=== PATIENT | female | born 1985 | race Caucasian/White ===

== ENCOUNTER → 2019-03-06 14:44 | Outpatient (CLI) | payer OTHER, SELFPAY ==
[2019-03-06 15:31] LABS: Add Manual Diff / Slide Review NO; Basophils Absolute Auto 0 /uL (0-100); Basophils Percent Auto 0.4 % (0-2); Eosinophils Absolute Auto 100 /uL (0-450); Eosinophils Percent Auto 1.8 % (2-4); Hematocrit 37.7 % (36-46); Hemoglobin 12.8 g/dL (12.0-16.0); Lymphocytes Absolute Auto 1600 /uL (1100-4500); Lymphocytes Percent Auto 22.8 % (25-40); Mean Corpuscular HGB Conc 33.8 % (30-36); Mean Corpuscular Volume 88.7 fL (80-100); Monocytes Absolute Auto 400 /uL (0-900); Monocytes Percent Auto 5.6 % (3-14); Neutrophils Absolute Auto 4800 /uL (1500-7000); Neutrophils Percent Auto 69.4 % (50-75); Platelet Count 251 X10^3/uL (150-400); Red Blood Cell Count 4.26 X10^6/uL (4.0-5.2); Red Cell Distribution Width 13.9 % (11.6-14.8)
[2019-03-06 17:03] LABS: Hepatitis B Surface Antigen NEGATIVE s/c (NEGATIVE)
[2019-03-06 17:12] LABS: Appearance Urine UA CLEAR; Bilirubin Urine UA NEGATIVE (NEGATIVE); Color Urine UA YELLOW; Glucose Urine UA NEGATIVE (Negative); Ketones Urine UA NEGATIVE (NEGATIVE); Leukocyte Esterase Urine UA NEGATIVE (NEGATIVE); Nitrite Urine UA NEGATIVE (Negative); Occult Blood Urine UA NEGATIVE (Negative); Protein Urine UA NEGATIVE (Negative); Urobilinogen Urine UA 0.2 E.U./dL (0.2); pH Urine UA 5.5 (4.5-8.0)
[2019-03-06 17:19] LABS: HIV 1 & 2 Ab/Ag 4th Gen Combo NEGATIVE (NEGATIVE); Hep C Virus Ab w/Reflex Quant NEGATIVE s/c (NEGATIVE)
[2019-03-09 23:56] LABS: RPR Screen Nonreactive (Nonreactive)
== END ==
PROVIDERS: Visit Provider Specialist
DX: Z34.81 Encounter for supervision of other normal pregnancy, first trimester (principal)
CPT/HCPCS: 36415; 80055; 81003; 86787; 86803; 86850; 86900; 86901; 87077; 87086; 87389

== ENCOUNTER → 2019-04-18 11:02 | Outpatient (CLI) | payer OTHER, SELFPAY ==
[2019-04-22 14:29] LABS: AFP, Serum 23.4 ng/mL; Calc Gestational Age 17.4; Cigarette Smoker N; Estriol, Free 1.27 ng/mL; Inhibin A, Dimeric 114 pg/mL; Maternal Weight 152 lbs; hCG, MoM 0.74; hCG, Serum 19.2 IU/mL
== END ==
PROVIDERS: Visit Provider Specialist
DX: Z34.82 Encounter for supervision of other normal pregnancy, second trimester (principal); Z3A.17 17 weeks gestation of pregnancy
CPT/HCPCS: 36415; 82105; 82677; 84702; 86336

== ENCOUNTER → 2019-05-08 15:41 | Outpatient (CLI) | payer OTHER, SELFPAY ==
--- NOTE | 2019-05-08 15:42 | DI.US.S_ITS ---
PROCEDURE: US OB >= 14 WEEKS FETUS INDICATIONS: ANATOMY SCAN OUTSIDE/PRIOR DATING DATA: Last menstrual period (LMP): 12/17/2018. LMP-based estimated date of delivery (DUSTIN): 09/23/2019. First dating scan (date and location): 02/21/2019. Estimated date of delivery (DUSTIN) from first dating scan: 09/23/2019. TECHNIQUE: Real-time scanning was performed of the fetus, with image documentation and biometric measurements. COMPARISON: [facility], , OB >= 14 WEEKS FETUS, 04/18/2019, 9:01. FINDINGS: General: A single living intrauterine gestation is present. Presentation: Transverse. Placenta: Placental position is posterior, without previa. Low lying approximately 1.1 cm from the internal cervical os. Amniotic fluid index: 12.4 cm, normal range is 5-24 cm. heart rate: 153 beats per minute. Maternal cervical canal: 5.2 cm long. Normal lower limit is 2.5 cm. biometrics: Biparietal diameter: 4.6 cm. 19 weeks 5/7 days. Head circumference: 17.6 cm. 20 weeks 1/7 days. Abdominal circumference: 15.8 cm. 21 weeks 0/7 days. Femur length: 3.2 cm. 20 weeks 1/7 days. Estimated gestational age from initial scan: 20 weeks 2/7 days. Composite gestational age from present scan: 20 weeks 3/7 days Estimated weight and percentile: 357 g. 57th percentile. Measurement variability for biometric dating: +/- 7 days from 14 weeks to 15 weeks 6 days gestation, +/- 10 days from 16 weeks to 21 weeks 6 days gestation, +/- 2 weeks from 22 weeks to 27 weeks 6 days gestation, +/- 3 weeks for 28 weeks gestation or later. weight reference: 4500 g or EFW >90/95% is considered macrosomia or large for gestational age. EFW <10% is small for gestational age. EFW 5% or less is considered intra-uterine growth restriction. Anatomic survey: Neuro: Ventricles are non-dilated at less than 10 mm. Cisterna magna is normal at 3-11 mm. Cerebellum is normal in size and morphology. Nuchal skin fold: Normal at less than 6 mm between 14-21 weeks gestational age. Face: Nose and lips, facial profile are normal. Spine: No evidence for spina bifida. Heart: 4-chambered heart is present, with normal ventricular outflow tracts. Diaphragm: Diaphragm is intact. Stomach: Left-sided stomach is present. Kidneys: No hydronephrosis. Normal is less than 5 mm in 2nd trimester, less than 7 mm in 3rd trimester. Cord: 3-vessel cord has orthotopic insertion. Bladder: Normal in size. Extremities: All 4 extremities identified. IMPRESSION: 1. Buckley living intrauterine at 20 weeks 3/7 days based on today's ultrasound. This is concordant with the external assessment. There is expected a normal growth. 2. Low-lying placenta. Normal amniotic fluid. Followup ultrasound is recommended. 3. Normal and complete anatomic survey. Dictated by: Rasheed Acosta M.D. on 05/08/2019 at 17:38 Approved by: Rasheed Acosta M.D. on 05/08/2019 at 17:49
== END ==
PROVIDERS: Visit Provider Specialist
DX: Z34.82 Encounter for supervision of other normal pregnancy, second trimester (principal); Z3A.20 20 weeks gestation of pregnancy
CPT/HCPCS: 76811

== ENCOUNTER → 2019-06-23 09:13 | Outpatient (CLI) | payer OTHER, SELFPAY ==
[2019-06-23 11:29] LABS: Hematocrit 29.8 % (36-46); Hemoglobin 10.1 g/dL (12.0-16.0)
[2019-06-23 12:08] LABS: GTT (PREG) 1 Hour PP 50gm Dose 83 mg/dL (76-139)
== END ==
PROVIDERS: PCP Specialist; Visit Provider Specialist
DX: O26.899 Other specified pregnancy related conditions, unspecified trimester (principal); Z34.82 Encounter for supervision of other normal pregnancy, second trimester; Z67.91 Unspecified blood type, Rh negative
CPT/HCPCS: 36415; 82950; 85014; 85018; 86850

== ENCOUNTER → 2019-08-29 11:52 | Outpatient (CLI) | payer OTHER, SELFPAY ==
[2019-08-30 08:26] LABS: Strep Grp B PCR NEG for Grp B Strep
== END ==
PROVIDERS: PCP Specialist; Visit Provider Specialist
DX: Z34.83 Encounter for supervision of other normal pregnancy, third trimester (principal)
CPT/HCPCS: 87653

== ENCOUNTER 2019-09-16 05:56 | Inpatient (IN) | payer OTHER, SELFPAY ==
[2019-09-16 07:39] LABS: Add Manual Diff / Slide Review NO; Basophils Absolute Auto 100 /uL (0-100); Basophils Percent Auto 0.7 % (0-2); Eosinophils Absolute Auto 200 /uL (0-450); Eosinophils Percent Auto 2.5 % (2-4); Hematocrit 30.8 % (36-46); Hemoglobin 10.2 g/dL (12.0-16.0); Lymphocytes Absolute Auto 1900 /uL (1100-4500); Lymphocytes Percent Auto 23.6 % (25-40); Mean Corpuscular Hemoglobin 25.8 PG (26-34); Monocytes Absolute Auto 600 /uL (0-900); Monocytes Percent Auto 7.8 % (3-14); Neutrophils Absolute Auto 5400 /uL (1500-7000); Neutrophils Percent Auto 65.4 % (50-75); Platelet Count 187 X10^3/uL (150-400); Red Blood Cell Count 3.95 X10^6/uL (4.0-5.2); Red Cell Distribution Width 16.4 % (11.6-14.8); White Blood Cell Count 8.2 X10^3/uL (4.5-11.0)
[2019-09-16] MEDS: IBUPROFEN 600 MG TABLET PO ×3 (07:59→20:32)
--- NOTE | 2019-09-16 08:10 | P.HPOB_ITS ---
OB HPI Date/Time Date of admission: 09/16/19 Date Patient Seen: 09/16/19 Time Patient Seen: 06:30 History of Present Condition Chief complaint: EVALUATION OF LABOR : 4 Para: 2 Estimated Date of Delivery: 09/23/19 Estimated Gestational Age (weeks): 39 Narrative: Yamilka Vital is a 34 year old female admitted in active labor History of Present care: good care, initiated at week # (9), number of visits (11) and pounds weight gain (30) Dating criteria: LMP confirmed by 1st trimester US Ultrasounds: normal mid trimester US Obstetrical complications: none Medical complications: none Preadmission Labs Blood type: 0 (-) negative -: Antibody screen: negative, GBS status: negative, HBsAG: negative and HIV: negative -: Rubella: immune and Varicella: immune PAP: Normal Quad screen: Normal 1 hr GTT: 83 Prior (ies) History: 01/24/14 40 weeks gestation female 02/02/2016 38 week gestation female infant retained placenta Evaluation Evaluation Baseline heart rate: 120 Variability: Moderate (11-25) monitor accelerations: Present monitor decelerations: Episodic Contraction Frequency (minutes): 5 Uterine Contraction Intensity: Strong/Firm Category of Tracing: II Cervical dilation (cm): 8 Cervical effacement (%): 100 station: -1 Laboratory results: Laboratory Tests 09/16/19 06:20 WBC 8.2 RBC 3.95 L Hgb 10.2 L Hct 30.8 L MCV 78.0 L MCH 25.8 L MCHC 33.0 RDW 16.4 H Plt Count 187 Neut % (Auto) 65.4 Lymph % (Auto) 23.6 L [place] % (Auto) 7.8 Eos % (Auto) 2.5 Baso % (Auto) 0.7 Neut # (Auto) 5400 Lymph # (Auto) 1900 [place] # (Auto) 600 Eos # (Auto) 200 Baso # (Auto) 100 PFSH Medical History (Updated 09/16/19 @ 09:51 by Sruthi Muñoz MD) Retained placenta (Acute) Vaginal delivery (Acute) Social History Smoking Status: Never smoker Meds Home Medications and Allergies Allergies Allergy/AdvReac Type Severity Reaction Status Date / Time No Known Drug Allergies Allergy Unverified 11/22/18 09:54 Review of Systems Review of Systems Narrative: Patient with onset of contractions at 3:30 a.m.. Arrived on Labor and delivery and had spontaneous rupture membranes clear fluid. No headaches, scotomata, epigastric pain. No fevers. ROS: Yes All systems reviewed with the patient and are negative except as otherwise documented Exam Vital Signs (past 8 hours): Blood pressure 104/68, pulse 79, temperature 97.6? Narrative Exam Narrative: HEENT exam within normal limits. Lungs are clear to au scultation and percussion. Heart is regular rate and rhythm no S3-S4 or murmurs. Abdomen is gravid with vertex infant. Extremities without edema and nontender. Objective Labs Result Diagrams: 09/16/19 06:20 Labs: Laboratory Results - last 24 hr 09/16/19 06:20 WBC 8.2 RBC 3.95 L Hgb 10.2 L Hct 30.8 L MCV 78.0 L MCH 25.8 L MCHC 33.0 RDW 16.4 H Plt Count 187 Neut % (Auto) 65.4 Lymph % (Auto) 23.6 L [place] % (Auto) 7.8 Eos % (Auto) 2.5 Baso % (Auto) 0.7 Neut # (Auto) 5400 Lymph # (Auto) 1900 [place] # (Auto) 600 Eos # (Auto) 200 Baso # (Auto) 100 Assessment and Plan Assessment and Plan Assessment and Plan narrative: 39 week gestation in active labor. Anticipate vaginal delivery. Patient is requesting nitrous for pain control.
[2019-09-16 09:15] VITALS: BP 126/75
--- NOTE | 2019-09-16 09:53 | PM.OBPRVD ---
Labor & Delivery Delivery date: 09/16/19 Intrapartal events: Precipitous Labor < 3 hours (3-1/2 hours) Delivery monitor: external FHT and external uterine Route of delivery: L&D Laceration Description: None Estimated blood loss (mL): 150 Narrative: Patient arrived in Labor and delivery in active labor. She had spontaneous rupture membranes clear fluid just after arrival to the hospital. She used nitrous for pain control. heart tones category 1 to 2. Patient had a spontaneous vaginal delivery over an intact perineum. The infant was placed on maternal abdomen. After cord stopped pulsating the cord was clamped, cut, and cord bloods obtained. The placenta delivered spontaneously, intact, with 3 vessels. There were no cervical, vaginal, or perineal tears. Both infant and mother doing well. Baby 1: Infant gender: Female Presentation: vertex position: Right Occiput Anterior Placenta delivery description: Spontaneous cord vessel description: 3 Vessels score (1 min): 8 score (5 min): 9 Plan for aftercare: Routine care
[2019-09-17] MEDS: IBUPROFEN 600 MG TABLET PO ×2 (02:28→09:03)
[2019-09-17] MEDS: RHO(D) IMMUNE GLOBULIN 1,500 UNIT SYRINGE 1500 UNIT IM (02:28)
[2019-09-17 07:41] LABS: Hematocrit 24.5 % (36-46); Hemoglobin 8.1 g/dL (12.0-16.0)
--- NOTE | 2019-09-17 08:29 | PM.OBDS.1 ---
Discharge Providers Provider Date of admission: 09/16/19 05:56 Discharge Date: 09/17/19 Primary care physician: Srutih Muñoz MD Consults: 09/16/19 07:14 Consult to Anesthesiology Urgent Comment: Consulting Provider: Anesthesiologist Reason for consultation: Epidural Has provider been notified: No 09/17/19 07:15 Consult to Coffee Shop Manager Routine Comment: Discharge provider: Sruthi Muñoz MD Summary Hospital Course Date Patient Seen: 09/17/19 Time Patient Seen: 07:50 Procedures: Vaginal delivery Hospital Course: Patient arrived on Labor and delivery in active labor. She had a spontaneous vaginal delivery of a viable female infant. She denies any headaches, scotomata, epigastric pain. She is ambulatory and breast-feeding without difficulty. Peripartum Data Infant Delivery Method: Natural Vaginal Laceration description: None Procedures: Vaginal delivery complications: none 1: Gender: Female Disposition of : home Discharge Diagnosis (1) Chronic anemia: Status: Acute (2) Vaginal delivery: Status: Acute Status at Discharge Cognitive/behavioral status at discharge: oriented Functional status at discharge: independent ambulation Overall status at discharge: patient is progressing back to baseline Time Spent with Patient Time attestation: Total time spent providing and/or coordinating discharge services: Time spent: Less than 30 minutes Objective Labs Result Diagrams: 09/17/19 06:30 Labs: Laboratory Results - last 24 hr 09/16/19 09/17/19 09/17/19 06:20 06:30 06:30 Hgb 8.1 L Hct 24.5 L Blood Type O Negative Antibody Screen Negative Maternal Bleed Negative Exam Vital Signs (past 8 hours): Blood pressure 104/61, pulse 70, temperature 98.7? Narrative Exam Narrative: Abdomen is soft, nontender. Uterus is firm, at U, nontender. Mild lochia. Extremities without edema and nontender. Patient's blood type is O negative and received RhoGAM cut the baby is Rh positive. She is rubella immune and received the Tdap in the 3rd trimester. Discharge Plan Discharge Plan Patient Disposition: Home Discharge orders & Medications Follow up/Referrals: Sruthi Muñoz MD [Primary Care Provider] - 1 Month (Sunday,September at 8:00 am with ) Discharge Health Status Care Plan Goals: Patient to take [id number] iron and vitamins at a different time. Be prepared to treat constipation with the iron Diet/Activity/Treatments Diet: Regular Activity: Nothing in vagina for 4 weeks. Skin/Wound/Dressing Care Report to your healthcare provider any signs of infection, such as:: chills, fever and increased pain Visit Report/Discharge Packet Instructions: DI for Labor and Delivery, Vaginal , DI for Hysterectomy Visit Report Forms: Patient Portal/API, Stroke Signs & Symptoms Discharge Data Primary Care Provider: Sruthi Muñoz
[2019-09-17] MEDS: DOCUSATE 100 MG CAPSULE PO (09:03)
[2019-09-17 09:16] VITALS: BP 104/61; PULSE 70; RESP 16; TEMP 36.8
== END 2019-09-17 12:25 | disposition home or self-care (01) | DRG 807 ==
PROVIDERS: Admitting Provider Specialist; PCP Specialist; Referring Provider Specialist; Visit Provider Specialist
DX: O62.3 Precipitate labor (principal); Z37.0 Single live birth; Z3A.39 39 weeks gestation of pregnancy; D53.9 Nutritional anemia, unspecified
CPT/HCPCS: 36415; 59050; 59400; 85014; 85018; 85025; 85461; 86850; 86900; 86901; G0379; J2790